=== PATIENT | male | born 1960 | race Caucasian/White ===

== ENCOUNTER 2019-06-03 23:19 | Observation (INO) | payer MEDICARE ==
--- NOTE | 2019-06-03 23:40 | ED ---
General Adult HPI - General Chief complaint: Chest Pain Stated complaint: Chest Pain Time Seen by Provider: 06/03/19 23:21 Source: patient, EMS Mode of arrival: EMS Limitations: no limitations - History of Present Illness Initial comments: Dictation was produced using [employer] dictation software. please excuse any grammatical, word or spelling errors. Chief Complaint: 58-year-old male past medical history of hypertension diabetes and tobacco use presents with chest pain. History of Present Illness: 58-year-old male who presents with chest pain. Patient was at home proximal to 1 hour to arrival when he developed substernal chest pressure. He states the pain was severe. Denies any radiation of symptoms and there was no associated diaphoresis. Patient has seen a executive vice president of sales before and is prescribed nitroglycerin for chest pain. He does not have any history of stents. Several years ago he had a cardiac cath that he was told was negative. This had a negative stress test some years ago. Patient was worried about having a heart attack EMS was called patient was given aspirin and nitroglycerin. He states that after that intervention his symptoms went away. Patient currently asymptomatic at this time. He states he has been having increased frequency of the similar pain recently. The ROS documented in this emergency department record has been reviewed and confirmed by me. Those systems with pertinent positive or negative responses have been documented in the HPI. All other systems are other negative and/or n oncontributory. PHYSICAL EXAM: General Impression: Alert and oriented x3, not in acute distress HEENT: Normocephalic atraumatic, extra-ocular movements intact, pupils equal and reactive to light bilaterally, mucous membranes moist. Cardiovascular: Heart regular rate and rhythm, S1&S2 audible, no murmurs, rubs or gallops Chest: Lungs clear to auscultation bilaterally, no rhonchi, no wheeze, no rales Abdomen: Bowel sounds present, abdomen soft, non-tender, non-distended, no organomegaly Musculoskeletal: Pulses present and equal in all extremities, no peripheral edema Motor: no focal deficits noted Neurological: CN II-XII grossly intact, no focal motor or sensory deficits noted Skin: Intact with no visualized rashes Psych: Normal affect and mood ED course: 58-year-old male presents with clinical presentation consistent with unstable angina signs upon arrival are within acceptable limits. Patient denies any chest pain at this time. There is concern of acute coronary syndrome. EKG does not suggest ST segment elevation OR. Patient received aspirin nitroglycerin by EMS providers. Laboratory evaluation obtained. CBC unremarkable. Coag panel unremarkable. Metabolic panel shows sodium 132. Patient given intravenous fluids. Cardiac enzymes negative. Chest x-ray is nonacute. Patient be admitted for concern of unstable angina. Cardiology consulted. Serial troponins ordered. Discussed patient case with Dr. devine was willing to accept patients care. EKG interpretation: Ventricular rate 86, sinus rhythm,. 172, QRS 92, QTc 464. No DC prolongation, no QTC prolongation, no ST or T-wave changes noted. No old EKG for comparison. Overall, this EKG is unremarkable - Related Data Allergies Allergy/AdvReac Type Severity Reaction Status Date / Time No Known Allergies Allergy Verified 06/03/19 23:44 Review of Systems ROS Statement: Those systems with pertinent positive or pertinent negative responses have been documented in the HPI. ROS Other: All systems not noted in ROS Statement are negative. Past Medical History Past Medical History: Cancer, Hypertension Additional Past Medical History / Comment(s): kidney CA, Left kidney removed Past Surgical History: Cholecystectomy, Tonsillectomy Additional Past Surgical History / Comment(s): hernia Smoking Status: Former smoker Past Alcohol Use History: None Reported Past Drug Use History: None Reported General Exam Limitations: no limitations Course Vital Signs 06/03/19 06/04/19 23:21 00:41 Temperature 98.6 F 98.0 F Pulse Rate 60 63 Respiratory 18 18 Rate Blood Pressure 140/82 114/66 O2 Sat by Pulse 98 97 Oximetry Medical Decision Making - Lab Data Result diagrams: 06/03/19 23:54 06/03/19 23:54 Lab Results 06/03/19 06/03/19 06/03/19 Range/Units 23:54 23:54 23:54 WBC 10.4 (3.8-10.6) k/uL RBC 4.63 (4.30-5.90) m/uL Hgb 13.3 (13.0-17.5) gm/dL Hct 41.6 (39.0-53.0) % MCV 89.9 (80.0-100.0) fL MCH 28.8 (25.0-35.0) pg MCHC 32.0 (31.0-37.0) g/dL RDW 14.6 (11.5-15.5) % Plt Count 357 (150-450) k/uL Neutrophils % 79 % Lymphocytes % 13 % Monocytes % 4 % Eosinophils % 2 % Basophils % 1 % Neutrophils # 8.2 H (1.3-7.7) k/uL Lymphocytes # 1.4 (1.0-4.8) k/uL Monocytes # 0.4 (0-1.0) k/uL Eosinophils # 0.2 (0-0.7) k/uL Basophils # 0.1 (0-0.2) k/uL PT 9.9 (9.0-12.0) sec INR 1.0 (<1.2) APTT 27.6 (22.0-30.0) sec Sodium 132 L (137-145) mmol/L Potassium 4.2 (3.5-5.1) mmol/L Chloride 98 (98-107) mmol/L Carbon Dioxide 25 (22-30) mmol/L Anion Gap 9 mmol/L BUN 10 (9-20) mg/dL Creatinine 0.99 (0.66-1.25) mg/dL Est GFR (CKD-EPI)AfAm >90 (>60 ml/min/1.73 sqM) Est GFR (CKD-EPI)NonAf 84 (>60 ml/min/1.73 sqM) Glucose 172 H (74-99) mg/dL Calcium 9.2 (8.4-10.2) mg/dL Magnesium 1.9 (1.6-2.3) mg/dL Total Bilirubin 0.4 (0.2-1.3) mg/dL AST 21 (17-59) U/L ALT 11 (4-49) U/L Alkaline Phosphatase 67 (38-126) U/L Troponin I (0.000-0.034) ng/mL Total Protein 7.5 (6.3-8.2) g/dL Albumin 3.6 (3.5-5.0) g/dL 06/03/19 Range/Units 23:54 WBC (3.8-10.6) k/uL RBC (4.30-5.90) m/uL Hgb (13.0-17.5) gm/dL Hct (39.0-53.0) % MCV (80.0-100.0) fL MCH (25.0-35.0) pg MCHC (31.0-37.0) g/dL RDW (11.5-15.5) % Plt Count (150-450) k/uL Neutrophils % % Lymphocytes % % Monocytes % % Eosinophils % % Basophils % % Neutrophils # (1.3-7.7) k/uL Lymphocytes # (1.0-4.8) k/uL Monocytes # (0-1.0) k/uL Eosinophils # (0-0.7) k/uL Basophils # (0-0.2) k/uL PT (9.0-12.0) sec INR (<1.2) APTT (22.0-30.0) sec Sodium (137-145) mmol/L Potassium (3.5-5.1) mmol/L Chloride (98-107) mmol/L Carbon Dioxide (22-30) mmol/L Anion Gap mmol/L BUN (9-20) mg/dL Creatinine (0.66-1.25) mg/dL Est GFR (CKD-EPI)AfAm (>60 ml/min/1.73 sqM) Est GFR (CKD-EPI)NonAf (>60 ml/min/1.73 sqM) Glucose (74-99) mg/dL Calcium (8.4-10.2) mg/dL Magnesium (1.6-2.3) mg/dL Total Bilirubin (0.2-1.3) mg/dL AST (17-59) U/L ALT (4-49) U/L Alkaline Phosphatase (38-126) U/L Troponin I <0.012 (0.000-0.034) ng/mL Total Protein (6.3-8.2) g/dL Albumin (3.5-5.0) g/dL Disposition Clinical Impression: ACS (acute coronary syndrome) Disposition: ADMITTED IP TO THIS HOSP Condition: Fair Referrals: Eusebio Loving DO [Primary Care Provider] - 1-2 days Decision Time: 00:50
[2019-06-04 00:04] LABS: Basophils # (A) 0.1 k/uL (0-0.2); Basophils % (A) 1 %; Eosinophils # (A) 0.2 k/uL (0-0.7); Eosinophils % (A) 2 %; HCT 41.6 % (39.0-53.0); HGB 13.3 gm/dL (13.0-17.5); Lymphocytes # (A) 1.4 k/uL (1.0-4.8); Lymphocytes % (A) 13 %; MCH 28.8 pg (25.0-35.0); MCV 89.9 fL (80.0-100.0); Mean Platelet Volume 6.9; Monocytes # (A) 0.4 k/uL (0-1.0); Monocytes % (A) 4 %; Neutrophils # (A) 8.2 k/uL (1.3-7.7); Neutrophils % (A) 79 %; Platelet Count 357 k/uL (150-450); RBC 4.63 m/uL (4.30-5.90); RDW 14.6 % (11.5-15.5); WBC 10.4 k/uL (3.8-10.6)
[2019-06-04 00:13] LABS: Partial Thromboplastin Time 27.6 sec (22.0-30.0); Prothrombin Time 9.9 sec (9.0-12.0)
[2019-06-04 00:20] LABS: ALT 11 U/L (4-49); African American GFR (CKD) >90 (>60 ml/min/1.73 sqM); Albumin 3.6 g/dL (3.5-5.0); Anion Gap 9 mmol/L; Blood Urea Nitrogen 10 mg/dL (9-20); Calcium 9.2 mg/dL (8.4-10.2); Carbon Dioxide 25 mmol/L (22-30); Chloride 98 mmol/L (98-107); Glucose 172 mg/dL (74-99); Non-African American GFR(CKD) 84 (>60 ml/min/1.73 sqM); Sodium 132 mmol/L (137-145); Total Bilirubin 0.4 mg/dL (0.2-1.3); Total Protein 7.5 g/dL (6.3-8.2)
--- NOTE | 2019-06-04 00:25 | XR ---
EXAMINATION TYPE: XR chest 2V DATE OF EXAM: 06/04/2019 COMPARISON: 08/15/2012 HISTORY: Chest pain TECHNIQUE: FINDINGS: Heart and mediastinum are normal. There is 6 mm density right upper lobe probably a granulo ma. There is some mild linear density left cardiac border. This is consistent with scarring. Unchange d. There is no pleural effusion. Bony thorax is intact. IMPRESSION: No active cardiopulmonary disease. Right upper lobe granuloma.
[2019-06-04 00:33] LABS: AST 21 U/L (17-59); Alkaline Phosphatase 67 U/L (38-126); Magnesium 1.9 mg/dL (1.6-2.3); Potassium 4.2 mmol/L (3.5-5.1)
[2019-06-04] MEDS ORDERED: NITROGLYCERIN SL TABS 0.4 MG TAB SUBLINGUAL PRN (00:47)
[2019-06-04] MEDS ORDERED: SODIUM CHLORIDE 0.9% 500 ML 500 ML IV STA (00:48)
--- NOTE | 2019-06-04 01:54 | P.HPIM ---
History of Present Illness H&P Date: 06/04/19 The patient is a 58-year-old male with a PMH of hypertension who presented to the ED with complaints of gradually worsening substernal chest discomfort and shortness of breath. The patient notes that his symptoms has been ongoing for several weeks, gradually worsening, with intermittent substernal pressure-like discomfort, sometimes feeling as though it is GERD, with radiation to the neck and bilateral shoulders. The patient notes that he also has occasional short of breath with this discomfort, even at rest. He also reports that his exercise tolerance has decreased during the past few weeks. He reports also occasional nausea and palpitations though denied dizziness, cough, fever, chills, or diarrhea. The patient reports that he had a stress test 2 years ago which was unremarkable. He otherwise also denied recent travel, or sick contacts. The patient underwent an extensive evaluation in the emergency room with EKG showing sinus rhythm with PVCs at 86 bpm with left axis deviation and T-wave flattening in leads V1 and V2. Laboratory evaluation revealed a sodium 132, potassium 4.2, troponin less than 0.012, BUN 10, creatinine 0.99, glucose 172, WBC count 10.4, hemoglobin 13.3. Review of Systems Pertinent positives and negatives as discussed in HPI, a complete review of systems was performed and all other systems are negative. Past Medical History Past Medical History: Cancer, Hypertension Additional Past Medical History / Comment(s): kidney CA, Left kidney removed Past Surgical History: Cholecystectomy, Tonsillectomy Additional Past Surgical History / Comment(s): hernia Smoking Status: Former smoker Past Alcohol Use History: None Reported Past Drug Use History: None Reported Medications and Allergies Allergies Allergy/AdvReac Type Severity Reaction Status Date / Time No Known Allergies Allergy Verified 06/03/19 23:44 Physical Exam Vitals: Vital Signs Temp Pulse Pulse Resp BP BP Pulse Ox 06/04/19 01:14 98.1 F 78 18 118/70 97 06/04/19 00:41 98.0 F 63 18 114/66 97 06/03/19 23:21 98.6 F 60 18 140/82 98 Intake and Output 06/03/19 06/03/19 06/04/19 14:59 22:59 06:59 Other: Weight 182.344 kg General: non toxic, no distress, appears at stated age, morbidly obese Derm: no unusual rashes/lesions no unusual ecchymoses, warm, dry Head: atraumatic, normocephalic, symmetric Eyes: EOMI, no lid lag, anicteric sclera, pupils equal round reactive to light ENT: Nose and ears atraumatic, no thrush, no pharyngeal erythema Neck: No thyromegaly, no cervical lymphadenopathy, trachea midline, supple Mouth: no lip lesion, mucus membranes moist Cardiovascular: S1S2 reg, no murmur, positive posterior tibial pulse bilateral, no edema, capillary refill less than 2 seconds Lungs: CTA bilateral, no rhonchi, no rales , no accessory muscle use Abdominal: soft, nontender to palpation, no guarding, no appreciable organomegaly, normal bowel sounds Ext: no gross muscle atrophy, muscle strength 5 out of 5 in all 4 extremities grossly, no contractures, Neuro: CN II-XI grossly intact, light touch intact all 4 extremities, finger to nose within normal limits, Psych: Alert, oriented, appropriate affect Results CBC & Chem 7: 06/03/19 23:54 06/03/19 23:54 Labs: Abnormal Lab Results - Last 24 Hours (Table) 06/03/19 06/03/19 Range/Units 23:54 23:54 Neutrophils # 8.2 H (1.3-7.7) k/uL Sodium 132 L (137-145) mmol/L Glucose 172 H (74-99) mg/dL Assessment and Plan Plan: Epigastric discomfort, rule out ACS -Continue with aspirin -Cardiac monitoring -Cardiology consult -If cardiac workup unremarkable, consider Protonix and outpatient GI follow-up -Trend troponin Hyperglycemia -Check hemoglobin A1c Hyponatremia, mild -Monitor for now DVT prophylaxis -heparin subq The patient is admitted with an anticipated less than 2 midnight stay for evaluation of chest pain CODE STATUS: Full Code Discussed with: Patient Anticipated discharge date: 1-[address]: Home A total of 30 minutes was spent on the care of this complex patient more than 50% of the time was spent in counseling and care coordination.
[2019-06-04 07:10] VITALS: RESP 18
[2019-06-04] MEDS ORDERED: MAG HYDROX/AL HYDROX/SIMETH 30 ML, HYOSCYAMINE ELIXIR 10 ML, LIDOCAINE VISCOUS 2% 10 ML PO ONE ×3 (07:58)
[2019-06-04] MEDS ORDERED: DOBUTamine DRIP for NUC MED 500 MG in DEXTROSE/WATER 1 250ML.BAG IV ONE (08:30)
[2019-06-04 08:47] LABS: Cholesterol 107 mg/dL (<200); HDL Cholesterol 37 mg/dL (40-60); LDL Cholesterol,Calculated 56 mg/dL (0-99); Triglycerides 71 mg/dL (<150)
[2019-06-04] MEDS ORDERED: ATORVASTATIN 10 MG TAB PO SCH (09:00)
[2019-06-04] MEDS ORDERED: METOPROLOL TARTRATE 25 MG TAB PO SCH (09:00)
[2019-06-04] MEDS ORDERED: HYDROCHLOROTHIAZIDE 25 MG TAB PO SCH (09:00)
[2019-06-04] MEDS ORDERED: ASPIRIN 81 MG PO SCH (09:00)
--- NOTE | 2019-06-04 09:32 | P.CRDCN ---
History of Present Illness History of present illness: HISTORY OF PRESENTING ILLNESS This is a pleasant 58-year-old male past medical history significant for hypertension, dyslipidemia, COPD and former nicotine dependence. The patient states he quit smoking approximately 3 months ago. He follows in the office with Dr. Ortega. We have been asked to see in consultation for chest pain. He states for the previous 3 days intermittently he has been experiencing a burning sensation in the midsternal region described as like heartburn in nature however much more intense. He has a nagging discomfort associated with shortness of breath. He also has intermittent episodes of palpitations. The pain is mildly reproducible on deep palpation of the epigastric region and he states at times it is worsened by movement of his arms. According to the patient he did undergo a heart catheterization many years ago by Dr. Connell that was norm al. DIAGNOSTICS EKG reveals sinus mechanism with frequent PVCs, left axis deviation and flattened T waves in the inferior leads. Chest xray negative for an acute cardiopulmonary process with right upper lobe granuloma noted. Unchanged from previous. Laboratory reviewed, CBC unremarkable, sodium 132, potassium 4.2, creatinine 0.99, magnesium 1.9, cardiac enzymes negative 2, LDL 56 and HDL 37. Current cardiac medications include aspirin 81 mg daily, hydrochlorothiazide 25 mg daily, metoprolol 25 mg twice a day, rosuvastatin 5 mg daily and [place] 5 mg at bedtime. REVIEW OF SYSTEMS At the time of my exam: CONSTITUTIONAL: Denies fever or chills. CARDIOVASCULAR: Denies chest pain, shortness of breath, orthopnea, PND or palpitations. RESPIRATORY: Denies cough. GASTROINTESTINAL: Denies abdominal pain, diarrhea, constipation, nausea or vomiting. MUSCULOSKELETAL: Denies myalgias. NEUROLOGIC: Denies numbness, tingling or weakness. ENDOCRINE: Denies fatigue, weight change, polydipsia or polyurina. GENITOURINARY: Denies burning, hematuria or urgency with micturation. HEMATOLOGIC: Denies history of anemia or bleeding. PHYSICAL EXAMINATION Blood pressure 117/73 heart rate 69 afebrile and maintaining oxygen saturation on room air. CONSTITUTIONAL: No apparent distress. HEENT: Head is normocephalic. Pupils are equal, round. Sclerae anicteric. Mucous membranes of the mouth are moist. No JVD. No carotid bruit. CHEST EXAMINATION: Lungs are clear to auscultation. No chest wall tenderness is noted on palpation or with deep breathing. HEART EXAMINATION: Regular rate and rhythm. S1, S2 heard. No murmurs, gallops or rub. ABDOMEN: Soft, nontender. Positive bowel sounds. EXTREMITIES: 2+ peripheral pulses, no lower extremity edema and no calf tenderness. NEUROLOGIC EXAMINATION: Patient is awake, alert and oriented x3. ASSESSMENT Chest pain, atypical for angina. Hypertension Dyslipidemia COPD Former nicotine dependence, quit 3 months ago Morbid obesity, BMI 52 PLAN An acute coronary event has been ruled out. We will attempt to obtain the report of the previous catheterization. Give GI cocktail and assess for resolution of discomfort. If he continues to have chest discomfort despite GI cocktail we'll proceed with dobutamine stress echocardiogram to assess for stress-induced cardiac ischemia. Obtain 2D echocardiogram and doppler study to assess cardiac structure and fu nction. Thank you kindly for this consultation. Nurse Practitioner note has been reviewed, I agree with a documented findings and plan of care. Patient was seen and examined. Past Medical History Past Medical History: Cancer, Hypertension Additional Past Medical History / Comment(s): kidney CA, Left kidney removed History of Any Multi-Drug Resistant Organisms: None Reported Past Surgical History: Cholecystectomy, Tonsillectomy Additional Past Surgical History / Comment(s): hernia Past Anesthesia/Blood Transfusion Reactions: No Reported Reaction Smoking Status: Former smoker Past Alcohol Use History: None Reported Past Drug Use History: None Reported - Past Family History Mother Family Medical History: COPD Father Family Medical History: Cancer Medications and Allergies Home Medications Medication Instructions Recorded Confirmed Type Aspirin 81 mg PO DAILY 06/04/19 06/04/19 History Hydrochlorothiazide 25 mg PO DAILY 06/04/19 06/04/19 History Metoprolol Tartrate 25 mg PO BID 06/04/19 06/04/19 History Rosuvastatin Calcium 5 mg PO DAILY 06/04/19 06/04/19 History Terazosin [Hytrin] 5 mg PO HS 06/04/19 06/04/19 History Allergies Allergy/AdvReac Type Severity Reaction Status Date / Time No Known Allergies Allergy Verified 06/04/19 07:12 Physical Exam Vitals: Vital Signs Temp Pulse Pulse Resp BP BP Pulse Ox 06/04/19 07:46 69 18 06/04/19 07:00 98.1 F 69 18 117/73 96 06/04/19 04:00 78 17 06/04/19 03:47 98.4 F 78 17 143/81 96 06/04/19 02:17 78 18 06/04/19 01:14 98.1 F 78 18 118/70 97 06/04/19 00:41 98.0 F 63 18 114/66 97 06/03/19 23:21 98.6 F 60 18 140/82 98 Intake and Output 06/03/19 06/04/19 06/04/19 22:59 06:59 14:59 Other: Voiding Method Toilet # Voids 1 Weight 184 kg Results 06/03/19 23:54 06/03/19 23:54 Cardiac Enzymes 06/03/19 06/03/19 06/04/19 Range/Units 23:54 23:54 05:33 AST 21 (17-59) U/L Troponin I <0.012 <0.012 (0.000-0.034) ng/mL Coagulation 06/03/19 Range/Units 23:54 PT 9.9 (9.0-12.0) sec APTT 27.6 (22.0-30.0) sec CBC 06/03/19 Range/Units 23:54 WBC 10.4 (3.8-10.6) k/uL RBC 4.63 (4.30-5.90) m/uL Hgb 13.3 (13.0-17.5) gm/dL Hct 41.6 (39.0-53.0) % Plt Count 357 (150-450) k/uL Comprehensive Metabolic Panel 06/03/19 Range/Units 23:54 Sodium 132 L (137-145) mmol/L Potassium 4.2 (3.5-5.1) mmol/L Chloride 98 (98-107) mmol/L Carbon Dioxide 25 (22-30) mmol/L BUN 10 (9-20) mg/dL Creatinine 0.99 (0.66-1.25) mg/dL Glucose 172 H (74-99) mg/dL Calcium 9.2 (8.4-10.2) mg/dL AST 21 (17-59) U/L ALT 11 (4-49) U/L Alkaline Phosphatase 67 (38-126) U/L Total Protein 7.5 (6.3-8.2) g/dL Albumin 3.6 (3.5-5.0) g/dL Current Medications Generic Name Dose Route Start Last Admin Trade Name Freq PRN Reason Stop Dose Admin Aspirin 325 mg 06/05/19 09:00 Aspirin PO DAILY SUNG Nitroglycerin 0.4 mg 06/04/19 00:47 Nitrostat SUBLINGUAL Q5M PRN Chest Pain Intake and Output 06/03/19 06/04/19 06/04/19 22:59 06:59 14:59 Other: Voiding Method Toilet # Voids 1 Weight 184 kg 06/03/19 23:54 06/03/19 23:54
[2019-06-04] MEDS ORDERED: PANTOPRAZOLE 40 MG TABLET PO SCH (10:45)
--- NOTE | 2019-06-04 11:07 | ECHOS ---
STRESS ECHOCARDIOGRAM INDICATIONS: Chest pain. BASELINE HEART RATE: 82 BASELINE BLOOD PRESSURE: 142/70 MAXIMUM HEART RATE: 140 MAXIMUM BLOOD PRESSURE: 202/66 85% MPHR: 138 100% MPHR: 162 MAXIMUM STAGE REACHED: 3 TOTAL EXERCISE TIME: 7:30 CLINICAL INFORMATION: STRESS DATA: Heart rate 82, pressure is 142/70 mmHg. Baseline EKG showed sinus rhythm. The patient has a dobutamine infusion at a dose of 10 mcg/kg per minute was initiated and increased to 30 mcg/kg per minute per protocol with max heart rate was 140 which is about 86% of maximum predicted heart rate. Maximum blood pressure was 202/66 mmHg. Clinically, the patient did not have any symptoms of chest pain or chest discomfort during the testing or on recovery. The EKG did not show any ischemic ST or T-wave abnormalities concerning for ischemia. Echocardiogram images and echo from parasternal long axis view, parasternal short axis view, apical 4 chamber and apical 2 chamber view were obtained as the baseline images, at low dose dobutamine infusion, at peak heart rate as well as on recovery and the echo showed good augmentation in the left ventricular systolic function. Please note that the echo images quality are poor because of patient body habitus. Definity was used. CONCLUSION: 1. Difficult study due to poor acoustic windows. 2. Normal EKG in response to dobutamine. 3. Normal echocardiogram in response to dobutamine. MMODL / IJN: [id number] /
[2019-06-04 11:17] VITALS: BP 127/68; PULSE 81; TEMP 97.8
--- NOTE | 2019-06-04 14:24 | P.DS ---
Providers Date of admission: 06/04/19 00:47 Expected date of discharge: 06/04/19 Attending physician: Josiah Lamb MD Consults: 06/04/19 00:47 Consult Physician Urgent Consulting Provider: Tk Ortega Consult Reason/Comments: chest pain Do you want consulting provider notified?: Yes Primary care physician: [facility] Course: 58-year-old male with a PMH of hypertension who presented to the ED with complaints of gradually worsening substernal chest discomfort and shortness of breath. The patient notes that his symptoms has been ongoing for several weeks, gradually worsening, with intermittent substernal pressure-like discomfort, sometimes feeling as though it is GERD, with radiation to the neck and bilateral shoulders. The patient notes that he also has occasional short of breath with this discomfort, even at rest. He also reports that his exercise tolerance has decreased during the past few weeks. He reports also occasional nausea and palpitations though denied dizziness, cough, fever, chills, or diarrhea. Patient had a stress test 2 years ago which was unremarkable according to him. He also had heart catheterization years ago according to him, was told he had angina but denied having to have any stents or heart surgery in the past. He underwent an extensive evaluation in the emergency room with EKG showing sinus rhythm with PVCs at 86 bpm with left axis deviation and T-wave flattening in leads V1 and V2. Laboratory evaluation revealed a sodium 132, potassium 4.2, troponin less than 0.012, BUN 10, creatinine 0.99, glucose 172, WBC count 10.4, hemoglobin 13.3. Patient was admitted to observation, troponin was cycled. Remained negative. He was watched on telemetry which did not show any acute abnormalities. Patient was seen by cardiology who recommended stress testing, he underwent dobutamine stress test which came back negative for reversible ischemia. Cardiology recommended outpatient follow-up. Patient will be discharged home in a stable condition. Patient Condition at Discharge: Fair Plan - Discharge Summary Discharge Rx Participant: No New Discharge Prescriptions: New Pantoprazole Sodium [Protonix] 40 mg PO DAILY #30 tablet. Continue Terazosin [Hytrin] 5 mg PO HS Hydrochlorothiazide 25 mg PO DAILY Metoprolol Tartrate 25 mg PO BID Aspirin 81 mg PO DAILY Rosuvastatin Calcium 5 mg PO DAILY Discharge Medication List Aspirin 81 mg PO DAILY 06/04/19 [History] Hydrochlorothiazide 25 mg PO DAILY 06/04/19 [History] Metoprolol Tartrate 25 mg PO BID 06/04/19 [History] Pantoprazole Sodium [Protonix] 40 mg PO DAILY #30 tablet. 06/04/19 [Rx] Rosuvastatin Calcium 5 mg PO DAILY 06/04/19 [History] Terazosin [Hytrin] 5 mg PO HS 06/04/19 [History] Follow up Appointment(s)/Referral(s): Eusebio Loving DO [Primary Care Provider] - 1-2 days Tk Ortega MD [STAFF PHYSICIAN] - 06/16/19 2:15 pm
[2019-06-04 14:28] LABS: Hemoglobin A1C 6.2 % (4.0-6.0)
[2019-06-04] MEDS ORDERED: DOXAZOSIN 4 MG TAB PO SCH (21:00)
[2019-06-05] MEDS ORDERED: ASPIRIN 325 MG TAB PO SCH (09:00)
== END 2019-06-04 14:10 | disposition home or self-care (01) ==
LOC: EC 23:19 → 1SOBS 06-04 00:47
PROVIDERS: ADMIT Internal Medicine; ATTEND Internal Medicine
DX: R07.89 Other chest pain (principal); I10 Essential (primary) hypertension; E78.5 Hyperlipidemia, unspecified; J44.9 Chronic obstructive pulmonary disease, unspecified; E66.01 Morbid (severe) obesity due to excess calories; Z68.43 Body mass index [BMI] 50.0-59.9, adult; Z85.528 Personal history of other malignant neoplasm of kidney; Z90.49 Acquired absence of other specified parts of digestive tract; Z82.5 Family history of asthma and other chronic lower respiratory diseases; Z80.9 Family history of malignant neoplasm, unspecified; Z87.891 Personal history of nicotine dependence; J84.10 Pulmonary fibrosis, unspecified; I49.3 Ventricular premature depolarization; Z79.82 Long term (current) use of aspirin; Z79.899 Other long term (current) drug therapy; R00.2 Palpitations; Z98.890 Other specified postprocedural states
CPT/HCPCS: 96360; 99285; 36415; 93005; 93351; 80061; 80053; 83735; 84484 ×2; 85025; 85610; 85730; 83036; 71046; G0378; C8929; J1250; Q9950; 93306

== ENCOUNTER 2022-03-27 01:25 | Emergency (ER) | payer MEDICARE, OTHER ==
[2022-03-27 01:48] VITALS: RESP 15; TEMP 98.6
[2022-03-27 02:51] LABS: Anisocytosis Slight; Basophils # (A) 0.1 k/uL (0-0.2); Basophils % (A) 1 %; Eosinophils # (A) 0.5 k/uL (0-0.7); Eosinophils % (A) 3 %; HCT 31.3 % (39.0-53.0); HGB 9.6 gm/dL (13.0-17.5); Hypochromasia Marked; Lymphocytes # (A) 1.6 k/uL (1.0-4.8); Lymphocytes % (A) 11 %; MCH 23.3 pg (25.0-35.0); MCHC 30.6 g/dL (31.0-37.0); MCV 76.3 fL (80.0-100.0); Mean Platelet Volume 7.5; Microcytosis Slight; Monocytes # (A) 0.7 k/uL (0-1.0); Monocytes % (A) 5 %; Neutrophils # (A) 11.2 k/uL (1.3-7.7); Neutrophils % (A) 79 %; Platelet Count 562 k/uL (150-450); RDW 16.1 % (11.5-15.5); WBC 14.3 k/uL (3.8-10.6)
[2022-03-27 03:00] LABS: INR 1.1 (<1.2); Prothrombin Time 11.2 sec (9.0-12.0)
--- NOTE | 2022-03-27 03:18 | ED ---
General Adult HPI - General Chief complaint: Chest Pain Stated complaint: Chest Pain Time Seen by Provider: 03/27/22 01:26 Source: EMS Mode of arrival: EMS Limitations: no limitations - History of Present Illness Initial comments: This is a 61-year-old male with an extensive past medical history including multiple surgeries for skin abscesses and hidradenitis to pretty on his lower extremities however presents emergency department today for chest pain. The patient stated that he was going up his stairs when he experienced chest pain on the left side of his chest that radiated to his back. The patient stated that he doesn't a history of high blood pressure and angina and stated that he did not have his nitroglycerin tablets. The patient stated that he had pain down the left arm as well and he became nervous we called EMS. On arrival, the pat ient was given nitroglycerin and aspirin and had improvement of his pain. The patient did state that he had pain on the left side of his chest but was significantly improved. The patient denied any lightheadedness, dizziness as well as any nausea, vomiting or diaphoresis. - Related Data Home Medications Medication Instructions Recorded Confirmed Aspirin 81 mg PO DAILY 06/04/19 06/04/19 Metoprolol Tartrate 25 mg PO BID 06/04/19 06/04/19 Rosuvastatin Calcium 5 mg PO DAILY 06/04/19 06/04/19 Terazosin [Hytrin] 5 mg PO HS 06/04/19 06/04/19 hydroCHLOROthiazide 25 mg PO DAILY 06/04/19 06/04/19 Previous Rx's Medication Instructions Recorded Pantoprazole Sodium [Protonix] 40 mg PO DAILY #30 tablet. 06/04/19 Allergies Allergy/AdvReac Type Severity Reaction Status Date / Time No Known Allergies Allergy Verified 03/27/22 01:45 Review of Systems ROS Statement: Those systems with pertinent positive or pertinent negative responses have been documented in the HPI. ROS Other: All systems not noted in ROS Statement are negative. Past Medical History Past Medical History: Cancer, Hypertension Additional Past Medical History / Comment(s): kidney CA, Left kidney removed History of Any Multi-Drug Resistant Organisms: None Reported Past Surgical History: Cholecystectomy, Tonsillectomy Additional Past Surgical History / Comment(s): hernia Past Anesthesia/Blood Transfusion Reactions: No Reported Reaction Past Psychological History: No Psychological Hx Reported Past Alcohol Use History: None Reported Past Drug Use History: None Reported - Past Family History Mother Family Medical History: COPD Father Family Medical History: Cancer General Exam Limitations: no limitations General appearance: alert, in no apparent distress, obese Head exam: Present: atraumatic, normocephalic, normal inspection Eye exam: Present: normal appearance, PERRL Pupils: Present: normal accommodation ENT exam: Present: normal exam, normal oropharynx, mucous membranes moist Neck exam: Present: normal inspection, full ROM Respiratory exam: Present: normal lung sounds bilaterally, chest wall tenderness (Tenderness to palpation just lateral the sternum on the right-sided anterior chest) Cardiovascular Exam: Present: regular rate, normal rhythm, normal heart sounds GI/Abdominal exam: Present: soft, normal bowel sounds Extremities exam: Present: normal inspection, full ROM Back exam: Present: normal inspection, full ROM Neurological exam: Present: alert, oriented X3, CN II-XII intact Psychiatric exam: Present: normal affect, normal mood Skin exam: Present: warm, dry Course Vital Signs 03/27/22 03/27/22 01:45 05:28 Temperature 98.6 F Pulse Rate 81 87 Respiratory 15 15 Rate Blood Pressure 112/62 122/71 O2 Sat by Pulse 100 99 Oximetry EKG Findings - EKG Comments: EKG Findings:: An EKG was obtained and was interpreted by myself showing a rate of 78, QRS duration of 88 and QTC of 419. This EKG showed a normal sinus rhythm with no ST segment elevation or depression noted. Medical Decision Making - Medical Decision Making Was pt. sent in by a medical professional or institution (, PA, BIOLOGICAL PHOTOGRAPHER, urgent care, hospital, or long-term...) When possible be specific @ -No Did you speak to anyone other than the patient for history (EMS, parent, family, police, friend...)? What history was obtained from this source @ -Yes, EMS Did you review nursing and triage notes (agree or disagree)? Why? @ -I reviewed and agree with nursing and triage notes Were old charts reviewed (outside hosp., previous admission, EMS record, old EKG, old radiological studies, urgent care reports/EKG's, long-term records)? Report findings @ -No old charts were reviewed Differential Diagnosis (chest pain, altered mental status, abdominal pain women, abdominal pain men, vaginal bleeding, weakness, fever, dyspnea, syncope, headache, dizziness, GI bleed, back pain, seizure, CVA, palpatations, mental health)? @ -Acute coronary syndrome, chest wall muscle strain, pneumonia EKG interpreted by me (3pts min.). @ -As above X-rays interpreted by me (1pt min.). @ -Chest x-ray was obtained and was interpreted by myself showing no acute process. CT interpreted by me (1pt min.). @ -None done U/S interpreted by me (1pt. min.). @ -None done What testing was considered but not performed or refused? (CT, X-rays, U/S, labs)? Why? @ -None What meds were considered but not given or refused? Why? @ -None Did you discuss the management of the patient with other professionals (professionals i.e. , PA, BIOLOGICAL PHOTOGRAPHER, lab, RT, psych nurse, social media specialist, dress operator, teacher, chief investment officer, case folder)? Give summary @ -No Was smoking cessation discussed for >3mins.? @ -No Was critical care preformed (if so, how long)? @ -No Were there social determinants of health that impacted care today? How? (Homelessness, low income, unemployed, alcoholism, drug addiction, transportation, low edu. Level, literacy, decrease access to med. care, longterm, rehab)? @ -No Was there de-escalation of care discussed even if they declined (Discuss DNR or withdrawal of care, Hospice)? DNR status @ -No What co-morbidities impacted this encounter? (DM, HTN, Smoking, COPD, CAD, Cancer, CVA, ARF, Chemo, Hep., AIDS, mental health diagnosis, sleep apnea, morbid obesity)? @ -Hypertension, diabetes, obesity Was patient admitted / discharged? Hospital course, mention meds given and route, prescriptions, significant lab abnormalities, going to OR and other pertinent info. @ -The patient was seen and evaluated emergency department. Physical exam, the patient was resting in bed without any acute distress. The patient did have reproducible chest pain however had continued substernal pain. Laboratory workup was obtained and was within normal limits including troponin 2. The patient was given Toradol and on reevaluation stated that his pain was nearly completely resolved. The patient was deemed to for discharge as he likely had costochondritis and not ACS at this time. The patient was advised to follow-up with his primary care physician and college hire for further workup and evalua tions report back to the [facility] department if his pain became acutely worse. The patient was agreeable to this and all his questions were answered. The patient was discharged home in stable condition. Undiagnosed new problem with uncertain prognosis? @ -No Drug Therapy requiring intensive monitoring for toxicity (Heparin, Nitro, Insulin, Cardizem)? @ -No Were any procedures done? @ -No Diagnosis/symptom? @ -Chest pain secondary to costochondritis Acute, or Chronic, or Acute on Chronic? @ -Acute Uncomplicated (without systemic symptoms) or Complicated (systemic symptoms)? @ -Uncomplicated Side effects of treatment? @ -No Exacerbation, Progression, or Severe Exacerbation? @ -No Poses a threat to life or bodily function? How? (Chest pain, [place], [place], pneumonia, PE, COPD, DKA, ARF, appy, cholecystitis, CVA, Diverticulitis, Homicidal, Suicidal, threat to staff... and all critical care pts) @ -No - Lab Data Result diagrams: 03/27/22 02:30 03/27/22 02:30 Lab Results 03/27/22 03/27/22 03/27/22 Range/Units 02:30 02:30 02:30 WBC 14.3 H (3.8-10.6) k/uL RBC 4.10 L (4.30-5.90) m/uL Hgb 9.6 L (13.0-17.5) gm/dL Hct 31.3 L (39.0-53.0) % MCV 76.3 L (80.0-100.0) fL MCH 23.3 L (25.0-35.0) pg MCHC 30.6 L (31.0-37.0) g/dL RDW 16.1 H (11.5-15.5) % Plt Count 562 H (150-450) k/uL MPV 7.5 Neutrophils % 79 % Lymphocytes % 11 % Monocytes % 5 % Eosinophils % 3 % Basophils % 1 % Neutrophils # 11.2 H (1.3-7.7) k/uL Lymphocytes # 1.6 (1.0-4.8) k/uL Monocytes # 0.7 (0-1.0) k/uL Eosinophils # 0.5 (0-0.7) k/uL Basophils # 0.1 (0-0.2) k/uL Hypochromasia Marked Anisocytosis Slight Microcytosis Slight PT 11.2 (9.0-12.0) sec INR 1.1 (<1.2) APTT 27.0 (22.0-30.0) sec Sodium 136 L (137-145) mmol/L Potassium 4.1 (3.5-5.1) mmol/L Chloride 105 (98-107) mmol/L Carbon Dioxide 26 (22-30) mmol/L Anion Gap 5 mmol/L BUN 11 (9-20) mg/dL Creatinine 1.07 (0.66-1.25) mg/dL Est GFR (CKD-EPI)AfAm 87 (>60 ml/min/1.73 sqM) Est GFR (CKD-EPI)NonAf 75 (>60 ml/min/1.73 sqM) Glucose 128 H (74-99) mg/dL Calcium 8.4 (8.4-10.2) mg/dL Magnesium 2.0 (1.6-2.3) mg/dL Total Bilirubin 0.4 (0.2-1.3) mg/dL AST 19 (17-59) U/L ALT 14 (4-49) U/L Alkaline Phosphatase 71 (38-126) U/L Troponin I (0.000-0.034) ng/mL NT-Pro-B Natriuret Pep pg/mL Total Protein 8.4 H (6.3-8.2) g/dL Albumin 3.2 L (3.5-5.0) g/dL 03/27/22 03/27/22 03/27/22 Range/Units 02:30 02:30 05:27 WBC (3.8-10.6) k/uL RBC (4.30-5.90) m/uL Hgb (13.0-17.5) gm/dL Hct (39.0-53.0) % MCV (80.0-100.0) fL MCH (25.0-35.0) pg MCHC (31.0-37.0) g/dL RDW (11.5-15.5) % Plt Count (150-450) k/uL MPV Neutrophils % % Lymphocytes % % Monocytes % % Eosinophils % % Basophils % % Neutrophils # (1.3-7.7) k/uL Lymphocytes # (1.0-4.8) k/uL Monocytes # (0-1.0) k/uL Eosinophils # (0-0.7) k/uL Basophils # (0-0.2) k/uL Hypochromasia Anisocytosis Microcytosis PT (9.0-12.0) sec INR (<1.2) APTT (22.0-30.0) sec Sodium (137-145) mmol/L Potassium (3.5-5.1) mmol/L Chloride (98-107) mmol/L Carbon Dioxide (22-30) mmol/L Anion Gap mmol/L BUN (9-20) mg/dL Creatinine (0.66-1.25) mg/dL Est GFR (CKD-EPI)AfAm (>60 ml/min/1.73 sqM) Est GFR (CKD-EPI)NonAf (>60 ml/min/1.73 sqM) Glucose (74-99) mg/dL Calcium (8.4-10.2) mg/dL Magnesium (1.6-2.3) mg/dL Total Bilirubin (0.2-1.3) mg/dL AST (17-59) U/L ALT (4-49) U/L Alkaline Phosphatase (38-126) U/L Troponin I <0.012 <0.012 (0.000-0.034) ng/mL NT-Pro-B Natriuret Pep 560 pg/mL Total Protein (6.3-8.2) g/dL Albumin (3.5-5.0) g/dL Disposition Clinical Impression: Costochondritis Disposition: HOME SELF-CARE Condition: Stable Instructions (If sedation given, give patient instructions): Costochondritis (ED) Is patient prescribed a controlled substance at d/c from ED?: No Referrals: Eusebio Loving DO [Primary Care Provider] - 1-2 days Time of Disposition: 06:00
[2022-03-27 03:40] LABS: Albumin 3.2 g/dL (3.5-5.0); Calcium 8.4 mg/dL (8.4-10.2); Potassium 4.1 mmol/L (3.5-5.1); Total Bilirubin 0.4 mg/dL (0.2-1.3); Total Protein 8.4 g/dL (6.3-8.2)
--- NOTE | 2022-03-27 03:40 | XR ---
EXAMINATION TYPE: XR chest 2V DATE OF EXAM: 03/27/2022 COMPARISON: NONE HISTORY: Chest pain TECHNIQUE: 3 views FINDINGS: There is some mild linear infiltrate right upper lobe and left lower lobe. Heart size is no rmal. No heart failure. There are no hilar masses. No pleural effusion. Bony thorax is intact. IMPRESSION: There are some mild linear infiltrate or atelectasis right upper lobe and left lower lobe . This appears increased compared to old exam.
[2022-03-27] MEDS ORDERED: KETOROLAC 15 MG/ML 1 ML VIAL IVP STA (03:57)
[2022-03-27 05:29] VITALS: BP 122/71; PULSE 87
== END 2022-03-27 06:38 | disposition home or self-care (01) ==
LOC: EC 01:25
DX: M94.0 Chondrocostal junction syndrome [Tietze] (principal); I10 Essential (primary) hypertension
CPT/HCPCS: 99285; 36415; 93005; 83880; 80053; 83735; 84484; 85025; 85610; 85730; 71046; 96374; J1885

== ENCOUNTER 2024-08-06 01:12 | Emergency (ER) | payer MEDICARE, OTHER ==
[2024-08-06 01:19] VITALS: BP 149/72; PULSE 60; RESP 18; TEMP 97.9
[2024-08-06] MEDS: SILVER NITRATE APPLICATOR 1 EACH STICK..EA. TOPICAL STA (01:34)
--- NOTE | 2024-08-06 01:44 | ED ---
General Adult HPI - General Chief complaint: Skin/Abscess/Foreign Body Stated complaint: Post-Op Bleeding Time Seen by Provider: 08/06/24 01:20 Source: patient, EMS Mode of arrival: EMS Limitations: no limitations - History of Present Illness Initial comments: Dictation was produced using [employer] dictation software. please excuse any grammatical, word or spelling errors. Chief Complaint: 63-year-old male with bleeding chronic wound History of Present Illness: Patient 63-year-old male he had an extensive perineal surgery back in October of last year for treatment of hidradenitis suppurativa. States that since his surgery he has had intermittent episodes of bleeding from the wound. Today he noticed there was bleeding more than usual. EMS was called and patient was brought to the ER. Surgery was performed at [facility]. The ROS documented in this emergency department record has been reviewed and confirmed by me. Those systems with pertinent positive or negative responses have been documented in the HPI. All other systems are other negative and/or noncontributory. - Related Data Home Medications Medication Instructions Recorded Confirmed Aspirin 81 mg PO DAILY 06/04/19 06/04/19 Metoprolol Tartrate 25 mg PO BID 06/04/19 06/04/19 Rosuvastatin Calcium 5 mg PO DAILY 06/04/19 06/04/19 Terazosin [Hytrin] 5 mg PO HS 06/04/19 06/04/19 hydroCHLOROthiazide 25 mg PO DAILY 06/04/19 06/04/19 Previous Rx's Medication Instructions Recorded Pantoprazole Sodium [Protonix] 40 mg PO DAILY #30 tablet. 06/04/19 Allergies Allergy/AdvReac Type Severity Reaction Status Date / Time No Known Allergies Allergy Verified 08/06/24 01:19 Review of Systems ROS Statement: Those systems with pertinent positive or pertinent negative responses have been documented in the HPI. ROS Other: All systems not noted in ROS Statement are negative. Past Medical History Past Medical History: Cancer, Hypertension Additional Past Medical History / Comment(s): kidney CA, Left kidney removed, hidradenitis suppurativa History of Any Multi-Drug Resistant Organisms: MRSA Date of last positivie culture/infection: 2023 MDRO Source:: Scrotum Past Surgical History: Cholecystectomy, Tonsillectomy Additional Past Surgical History / Comment(s): hernia Past Anesthesia/Blood Transfusion Reactions: No Reported Reaction Past Psychological History: No Psychological Hx Reported Smoking Status: Former smoker Past Alcohol Use History: None Reported Past Drug Use History: None Reported - Past Family History Mother Family Medical History: COPD Father Family Medical History: Cancer General Exam - General Exam Comments Initial Comments: General: Well-appearing, nontoxic, no acute distress. Head: Normocephalic, atraumatic Eyes: PERRLA, EOMI ENT: Airway patent Chest: Nonlabored breathing Skin: No visual rash, normal skin tone Neuro: Alert and oriented 3 Musculoskeletal: No gross abnormalities Perineum: Chronic wound to the perineum with well appearing granulation tissue, no surrounding erythema, not malodorous without any drainage purulent fluid. Slight oozing of blood. Limitations: no limitations Course Vital Signs 08/06/24 01:15 Temperature 97.9 F Pulse Rate 60 Respiratory 18 Rate Blood Pressure 149/72 O2 Sat by Pulse 100 Oximetry Medical Decision Making - Medical Decision Making Was pt. sent in by a medical professional or institution (, PA, ROAD FREIGHT CONDUCTOR, urgent care, hospital, or intermediate...) When possible be specific @ -No Did you speak to anyone other than the patient for history (EMS, parent, family, police, friend...)? What history was obtained from this source @ -No Did you review nursing and triage notes (agree or disagree)? Why? @ -I reviewed and agree with nursing and triage notes Were old charts reviewed (outside hosp., previous admission, EMS record, old EKG, old radiological studies, urgent care reports/EKG's, intermediate records)? Report findings @ -No old charts were reviewed Differential Diagnosis (chest pain, altered mental status, abdominal pain women, abdominal pain men, vaginal bleeding, musculoskeletal, weakness, fever, dyspnea, syncope, headache, dizziness, GI bleed, back pain, seizure, CVA, palpatations, mental health)? @ -Not applicable EKG interpreted by me (3pts min.). @ -None done X-rays interpreted by me (1pt min.). @ -None done CT interpreted by me (1pt min.). @ -None done U/S interpreted by me (1pt. min.). @ -None done What testing was considered but not performed or refused? (CT, X-rays, U/S, labs)? Why? @ -None What meds were considered but not given or refused? Why? @ -None Was smoking cessation discussed for >3mins.? @ -No Were there social determinants of health that impacted care today? How? (Homelessness, low income, unemployed, alcoholism, drug addiction, transportation, low edu. Level, literacy, decrease access to med. care, nursing home, rehab)? @ -No Was there de-escalation of care discussed even if they declined (Discuss DNR or withdrawal of care, Hospice)? DNR status @ -No What co-morbidities impacted this encounter? (DM, HTN, Smoking, COPD, CAD, Cancer, CVA, ARF, Chemo, Hep., AIDS, mental health diagnosis, sleep apnea, morbid obesity)? @ -None Was patient admitted / discharged? Hospital course, mention meds given and route, prescriptions, significant lab abnormalities, going to OR and other pertinent info. @ -63-year-old male with bleeding from chronic surgical wound. Wound appears well. Vital signs stable. Patient physical exam is benign. There was some oozing from the wound. Silver nitrate stick was used to cauterize some small areas of bleeding. Patient discharged. Told to follow-up with primary care doctor or general surgery Did you discuss the management of the patient with other professionals (professionals i.e. , PA, ROAD FREIGHT CONDUCTOR, lab, RT, psych nurse, social work therapist, manager stylist, teacher, gunnery/ordnance officer, pillowcase cleaner)? Give summary @ -No Was critical care preformed (if so, how long)? @ -No Undiagnosed new problem with uncertain prognosis? @ -No Drug Therapy requiring intensive monitoring for toxicity (Heparin, Nitro, Insulin, Cardizem)? @ -No Were any procedures done? @ -No Diagnosis/symptom? Acute, or Chronic, or Acute on Chronic? Uncomplicated (without systemic symptoms) or Complicated (systemic symptoms)? @ -Bleeding from chronic wound Side effects of treatment? @ -No Exacerbation, Progression, or Severe Exacerbation? @ -No Poses a threat to life or bodily function? How? (Chest pain, [place], [place], pneumonia, PE, COPD, DKA, ARF, appy, cholecystitis, CVA, Diverticulitis, Homicidal, Suicidal, threat to staff... and all critical care pts) @ -No Disposition Clinical Impression: Bleeding from wound Disposition: HOME SELF-CARE Condition: Good Instructions (If sedation given, give patient instructions): Bleeding Disorders (ED) Is patient prescribed a controlled substance at d/c from ED?: No Referrals: Eusebio Loving DO [Primary Care Provider] - 1-2 days Time of Disposition: 01:44
== END 2024-08-06 01:45 | disposition home or self-care (01) ==
LOC: EC 01:12
DX: L76.22 Postprocedural hemorrhage of skin and subcutaneous tissue following other procedure (principal); Z87.891 Personal history of nicotine dependence
CPT/HCPCS: 99283